=== PATIENT | female | born 1960 | race Caucasian/White ===

== ENCOUNTER 2024-11-06 13:01 | Emergency (ER) | payer OTHER, SELFPAY ==
--- NOTE | ~2024-11-06 | XR_ITS ---
EXAMINATION: XR FOREARM, LEFT CLINICAL INFORMATION: cat bite ventral forearm, cellulitis COMPARISON: None available. TECHNIQUE: AP and lateral views of the left forearm were obtained. FINDINGS: The bones and soft tissues are normal. No fracture. Imaged portions of the elbow and wrist are unremarkable. There is no soft tissue gas, radiopaque foreign body or swelling seen. XR/XR forearm LT 2V IMPRESSION: Unremarkable left forearm. Electronically signed by: Rah Mota MD 11/06/2024 04:34 PM EST
--- NOTE | 2024-11-06 13:18 | ED.GENADULT ---
HPI - General Adult General Chief complaint: Animal Bite Stated complaint: cellulitis sent in by urgent care Time Seen by Provider: 11/06/24 13:45 Source: patient and family () Mode of arrival: ambulatory Limitations: no limitations History of Present Illness ED Provider: BRANDY FLORIAN PA-C HPI narrative: 64-year-old female with no significant past medical history presents to the ED today for evaluation of cat bite to her left forearm. Reports holding her 18-year-old cat while he was dying early Tuesday morning (>24 hours ago). While holding it, the cat bit her left forearm. She states he of old age and did not have any known diseases. Her cat was an indoor cat and was up to date on all vaccinations. She reports washing the puncture wounds out with soap and water and applying bacitracin. She now reports increasing redness around the puncture wounds, extending up her left extremity. She was evaluated at urgent care early today and was advised to come to the ED for IV antibiotics. Endorses pain. Denies fever, chills. Denies drainage from the wounds. Tetanus is not UTD. Related Data Previous Rx's ?Medication ?Instructions ?Recorded amoxicillin 875 mg-potassium 1 tab PO Q12H 10 days #20 tabs 11/06/24 clavulanate 125 mg tablet Allergies Allergy/AdvReac Type Severity Reaction Status Date / Time No Known Allergies Allergy Verified 11/06/24 13:21 Review of Systems Review of Systems: Constitutional: No fever, chills, fatigue, night sweats, weight changes ENT/Mouth: No ear pain, hearing loss, nasal congestion, sinus pain, rhinorrhea, sore throat Eyes: No eye pain, swelling, redness, vision changes, discharge Cardio: No chest pain, palpitations, WISE, orthopnea, peripheral edema Pulm: No SOB, cough, sputum, wheezing, dyspnea, hemoptysis GI: No nausea, vomiting, hematemesis, abdominal pain, diarrhea, constipation, hematochezia, melena : No irregular bleeding, dysuria, frequency, urgency, hesitancy, hematuria, flank pain, urinary flow changes, urinary incontinence or retention MSK: No back pain, neck pain, joint pain, myalgias Skin: No lesions, rashes, +puncture wounds left forearm Neuro: No weakness, numbness, paresthesias, LOC, dizziness, headache Psych: No anxiety/panic, depression, SI/HI, AH/VH All other systems reviewed and are negative. [facility] Past Medical History Attestation statement: The following information was validated with the patient. Source: old records reviewed and nursing notes reviewed Social History Social History Advance Directives: No Physical Exam ED Vital Signs: Vital Signs - 24 hr 11/06/24 13:20 Temperature 98 F Pulse Rate 94 Respiratory Rate 16 Blood Pressure 160/80 H Pulse Oximetry 98 Oxygen Delivery Method Room Air BMI result Body Mass Index 31.9 hypertensive, afebrile General: Well appearing, in no acute distress. Skin: +see below Head: Normocephalic, atraumatic. EENT: Hearing is intact b/l. Conjunctiva clear. PERRLA. EOM intact. Moist mucous membranes.? Neck: Supple without LAD Cardiac: Chest wall symmetric. RRR Lungs: Normal respiratory effort without accessory muscle use. CTA bilaterally Abdomen: Soft, non-tender, non-distended Back: No midline spinous or paraspinal tenderness. No step off deformity. Ext: +left ventral forearm with four puncture wounds. no drainage. large area of surrounding erythema and swelling, warm, ttp. no palpable fluctuance or pointing. no crepitus. noted streaking to medial aspect of LUE extending from puncture wounds proximally to left axilla. 2+radial/ulnar pulse intact. Neuro: AOx3. Normal speech. Ambulating with steady gait. Psych: Appropriate mood and affect. Responds appropriately to questions. Course Course Course Narrative: This is a rapid medical exam performed by Gildardo Castaneda NP: Additional HPI, ROS, PE not included below will be deferred to primary provider. Patient is a 64-year-old female presenting from urgent care with cat bite to left forearm which occurred early Tuesday morning. It was patient's cat, UTD on vaccinations, indoor cat only. Tdap not UTD. Denies fevers. Plan: labs Reevaluation(s) Reevaluation #1: CBC without leukocytosis or left shift. No anemia. H&H stable. Chemistry without acute electrolyte abnormality requiring intervention. CRP is elevated to 2.91. Her lactic acid is wnl at 1.3. xr left forearm unremarkable. > Dr. Juarez at bedside. patient initially agreeable to admission for IV abx. upon further discussion, patient would like to be discharged home with oral antibiotics. Dr. Juarez feels this is reasonable and is recommending a 7-10 day course of PO Augmentin. this has been sent to her pharmacy. I encouraged patient to return to the ED with new or worsening symptoms such as redness spreading outside of the marked pen line, etc. Patient has remained stable throughout ED visit today. All questions answered at this time. Patient is agreeable with disposition and stable for discharge. Medications Administered Discontinued Medications Generic Name Dose Route Start Last Admin Trade Name Freq PRN Reason Stop Dose Admin Diphtheria/Tetanus/Acell Pertussis 0.5 ml 11/06/24 13:59 11/06/24 15:23 Diphth,Pertus(Acell),Tet Adult 0.5 Ml Syringe IM 11/06/24 14:00 Not Given .ONCE ONE Ampicillin Sodium/Sulbactam 100 mls @ 200 mls/hr 11/06/24 14:24 11/06/24 16:48 Sodium 3 gm/ Sodium Chloride IV 11/06/24 14:53 Infused ONCE ONE Infusion Ketorolac Tromethamine 15 mg 11/06/24 14:31 11/06/24 16:07 Ketorolac Tromethamine 15 Mg/Ml Vial IVPUSH 11/06/24 14:32 15 mg ONCE ONE Administration Medical Decision Making Medical Decision Making MDM Narrative: 64-year-old female with no significant past medical history presents to the ED today for evaluation of cat bite to her left forearm. Hypertensive, afebrile. She is nontoxic appearing and in NAD. Exam significant for left ventral forearm with four puncture wounds. no drainage. large area of surrounding erythema and swelling, warm, ttp. no palpable fluctuance or pointing. no crepitus. noted streaking to medial aspect of LUE extending from puncture wounds proximally to left axilla. 2+radial/ulnar pulse intact. Differential diagnosis includes cellulitis, animal bite, lymphangitis Plan for labs, lactic, BC, xr, and IV abx and pain control, tdap booster No concern for sepsis at 1450. Differential Diagnosis Differential Diagnoses: The differential diagnosis associated with the presentation includes as above. Admission/Observation Consideration of admission/observation: Escalation of care including admission/observation considered Admission discussed with patient and Dr. Juarez. Patient declining admission at this time - Dr. Juarez recommends outpatient treatment with PO augmentin. Consult Healthcare Provider Management of the patient was discussed with: Hospitalist (Dr. Juarez) Lab Data MDM Lab Attestation statement: I reviewed the patient's lab results. as above. 11/06/24 13:34 11/06/24 13:34 Labs: Lab Results 11/06/24 11/06/24 Range/Units 13:34 14:55 WBC 7.3 (4.8-10.8) X10*3/uL RBC 4.42 (4.20-5.50) X10*6/uL Hgb 14.1 (12.0-16.0) g/dl Hct 41.0 (37.0-47.0) % MCV 92.8 (80.0-98.0) fL MCH 31.9 (27.0-33.0) pg MCHC 34.4 (31.0-35.0) g/dl RDW 11.7 (11.0-16.0) % Plt Count 264 (160-400) X10*3/uL MPV 9.5 (9.4-12.3) fL Immature Gran % (Auto) 0.3 (0.0-0.4) % Neut % (Auto) 64.1 (45-73) % Lymph % (Auto) 24.4 (20-40) % [place] % (Auto) 6.3 (2-11) % Eos % (Auto) 4.1 H (0-4) % Baso % (Auto) 0.8 (0-2) % Lymph # (Auto) 1.8 (1.2-4.9) X10*3/uL [place] # (Auto) 0.5 (0.1-1.2) X10*3/uL Eos # (Auto) 0.3 (0.0-0.4) X10*3/uL Baso # (Auto) 0.1 (0.0-0.2) X10*3/uL Abs Immat Gran (auto) 0.02 (0.00-0.03) X10*3/uL Absolute Neuts (auto) 4.7 (2.0-8.3) x10*3/uL Absolute Nucleated RBC 0.000 (0.0-0.012) X10*3/uL Nucleated RBC % (auto) 0.0 (0.0-0.2) /100WBC ESR 6 (0-20) MM/HR Sodium 141 (135-145) mmol/L Potassium 3.9 (3.3-5.1) mmol/L Chloride 110 H (96-108) mmol/L Carbon Dioxide 25 (22-29) mmol/L Anion Gap 10 L (12-20) BUN 15 (9-16) mg/dL Creatinine 0.73 (0.5-1.4) mg/dL Estim Creat Clear Calc 77.7 Estimated GFR > 60 Random Glucose 105 (60-115) mg/dL Lactic Acid 1.3 (0.5-2.0) mmol/L Calcium 9.5 (8.4-10.2) mg/dL Total Bilirubin 0.3 (0.0-1.0) mg/dL AST 25 (5-31) U/L ALT 31 (0-31) U/L Alkaline Phosphatase 74 (39-117) U/L C-Reactive Protein 2.91 H (< or = 0.50) mg/dL Total Protein 7.0 (6.5-8.0) g/dL Albumin 4.2 (3.5-5.0) g/dL Independent Interpretation I performed an independent interpretation of an: Plain X-Ray Interpretation: xr left forearm without fracture or SQ gas Radiology Impression Discussion of test interpretation with radiology: I have reviewed the radiologist's reading. Radiologist Impression: EXAMINATION: XR FOREARM, LEFT CLINICAL INFORMATION: cat bite ventral forearm, cellulitis COMPARISON: None available. TECHNIQUE: AP and lateral views of the left forearm were obtained. FINDINGS: The bones and soft tissues are normal. No fracture. Imaged portions of the elbow and wrist are unremarkable. There is no soft tissue gas, radiopaque foreign body or swelling seen. XR/XR forearm LT 2V IMPRESSION: Unremarkable left forearm. Electronically signed by: Rah Mota MD 11/06/2024 04:34 PM [facility] Independent Historian Clinical information obtained from an independent historian. History obtained from or confirmed by: Spouse () Prescription Management I considered prescription management with: Antibiotic (augmentin) Social Determinants Patient?s care significantly limited by Social Determinants of Health including: Other Social Determinant of Health Critical Care Time Critical Care Time Critical Care Time: No Discharge Plan Discharge Clinical Impression: Cat bite, Lymphangitis Patient Disposition: Home, Self-Care Instructions: Animal Bite (ED), Lymphangitis (ED) Additional Instructions: You were evaluated in the ED today for a cat bite to your left forearm. Your blood work today is reassuring. Your xray does not demonstrate involvement of the bone. You were provided with IV pain medication and a dose of antibiotics. Your tetanus was updated today and will be valid for 10 years. We discussed admission to the hospital and you decline at this time. Augmentin is an antibiotic that has been sent to your pharmacy for treatment On Augmentin, softer bowel movements are to be expected. Call your provider if you move your bowels more than 4 times a day, your bowel movements are almost all liquid, or you get a rash.? Please take the antibiotics prescribed to you in full, as directed. I recommend you take 600mg ibuprofen every 6 hours or Tylenol 650mg every 6 hours as needed for pain. If needed, you can alternate these medications so that you take one medication every 3 hours. For example, at noon take ibuprofen, then at 3pm take Tylenol, then at 6pm take ibuprofen. Please follow up with your primary care provider within two days. Return to the Emergency Department if you experience worsening or uncontrolled pain, spreading redness (outside of the marked pen lines), fevers 100.4? or greater, pus from your bite, or for any other concerning symptoms. In the case of an emergency call 911. Prescriptions: New amoxicillin-pot clavulanate 875-125 mg tablet 1 tab PO Q12H 10 Days Qty: 20 0RF Referrals: Jenny Costello FNP [Primary Care Provider] - Stand Alone Forms: Work/School Release Print Language: Cymro
[2024-11-06 13:20] VITALS: BP 160/80; PULSE 94; RESP 16; TEMP 36.6; O2SAT 98; BMI 31.9
[2024-11-06 13:39] LABS: MANUAL DIFF FLAG NO
[2024-11-06 13:44] LABS: Basophils Absolute Auto 0.1 X10*3/uL (0.0-0.2); Basophils Percent Auto 0.8 % (0-2); Eosinophils Absolute Auto 0.3 X10*3/uL (0.0-0.4); Eosinophils Percent Auto 4.1 % (0-4); Hemoglobin 14.1 g/dl (12.0-16.0); Imm Gran Abs Auto 0.02 X10*3/uL (0.00-0.03); Imm Gran Pct Auto 0.3 % (0.0-0.4); Lymphocytes Absolute Auto 1.8 X10*3/uL (1.2-4.9); Lymphocytes Percent Auto 24.4 % (20-40); Mean Corpuscular HGB Conc 34.4 g/dl (31.0-35.0); Mean Corpuscular Hemoglobin 31.9 pg (27.0-33.0); Mean Corpuscular Volume 92.8 fL (80.0-98.0); Mean Platelet Volume 9.5 fL (9.4-12.3); Monocytes Absolute Auto 0.5 X10*3/uL (0.1-1.2); Monocytes Percent Auto 6.3 % (2-11); Neutrophils Absolute Auto 4.7 x10*3/uL (2.0-8.3); Neutrophils Percent Auto 64.1 % (45-73); Platelet Count 264 X10*3/uL (160-400); Red Blood Count 4.42 X10*6/uL (4.20-5.50); Red Cell Distribution Width 11.7 % (11.0-16.0); White Blood Count 7.3 X10*3/uL (4.8-10.8)
[2024-11-06 13:59] LABS: Alanine Aminotransferase 31 U/L (0-31); Albumin Level 4.2 g/dL (3.5-5.0); Alkaline Phosphatase 74 U/L (39-117); Anion Gap 10 (12-20); Aspartate Amino Transferase 25 U/L (5-31); Bilirubin Total 0.3 mg/dL (0.0-1.0); Blood Urea Nitrogen 15 mg/dL (9-16); Calcium 9.5 mg/dL (8.4-10.2); Carbon Dioxide 25 mmol/L (22-29); Chloride 110 mmol/L (96-108); Creatinine Clr Calc Pharmacy 77.7; Estimated Glomerular Filt Rate > 60; Glucose Random 105 mg/dL (60-115); Potassium 3.9 mmol/L (3.3-5.1); Sodium 141 mmol/L (135-145)
[2024-11-06 14:44] LABS: C Reactive Protein 2.91 mg/dL (< or = 0.50)
--- NOTE | 2024-11-06 15:01 | PC.NURSE ---
pt a&ox3, lt fa red/swollen, bite form faxed to [facility], 1st set of blood cultures obtained, pt currently to xray will obtain a line and get the second set when she returns
[2024-11-06 15:19] LABS: Erythrocyte Sedimentation Rate 6 MM/HR (0-20)
[2024-11-06 15:23] LABS: Lactic Acid 1.3 mmol/L (0.5-2.0)
[2024-11-06] MEDS: Ketorolac Tromethamine 15 MG/ML VIAL IVPUSH (16:07)
[2024-11-06] MEDS: Ampicillin Sodium/Sulbactam Na 3 GM in 0.9 % Sodium Chloride 100 ML IV (16:09)
--- NOTE | 2024-11-06 16:54 | PM.EVENT ---
Event Note Date of Service: 11/06/24 Event Note: The patient was being evaluated for admission. She was unaware that she was being admitted and did not intend to stay overnight. As such, I advised the ED provider to consider prescribing Augmentin 875 mg twice daily for 7 to 10 days if patient is being discharged from the ED Time Spent With Patient Time: Total time managing care of this patient today ____ minutes.
[2024-11-06 17:15] VITALS: BP 136/76; PULSE 85; RESP 18; TEMP 36.9; O2SAT 100
--- NOTE | 2024-11-06 17:36 | PHA.MEDREC ---
Addendum entered by Felice Cruz RPh 11/06/24 17:41: med rec reviewed Original Note: Pharmacy Consult ? Medication Reconciliation Pharmacy has completed the medication reconciliation. Spoke to patient to confirm med list.
[2024-11-06 17:57] VITALS: BP 136/76; PULSE 85; RESP 18; TEMP 36.9; O2SAT 100
== END 2024-11-06 17:58 | disposition home or self-care (01) ==
PROVIDERS: Physician Assistant Medical; Registered Nurse Emergency; Emergency Provider Emergency Medicine; PCP Nurse Practitioner Family
DX: S51.852A Open bite of left forearm, initial encounter (principal); M79.632 Pain in left forearm; W55.01XA Bitten by cat, initial encounter; Y93.89 Activity, other specified; Y92.89 Other specified places as the place of occurrence of the external cause; Y99.8 Other external cause status; Z79.899 Other long term (current) drug therapy
CPT/HCPCS: 36415; 73090; 80053; 83605; 85025; 85652; 86140; 87040; 96365; 96375; 99283; 99284; J0295; J1885

== ENCOUNTER → 2024-11-06 14:56 | Outpatient (BNV) | payer OTHER, SELFPAY | PROVIDERS: Emergency Provider Emergency Medicine; PCP Nurse Practitioner Family; Visit Provider Radiology Diagnostic Radiology | DX: L03.114 Cellulitis of left upper limb (principal) | CPT/HCPCS: 73090 ==